=== PATIENT | male | born 1965 | race Native Hawaiian/Other Pacific Islander ===

== ENCOUNTER 2016-11-17 06:41 | Outpatient (CLI) | payer BC | END 2016-11-17 19:54 | disposition home or self-care (01) | LOC: CT 06:41 | DX: R10.9 Unspecified abdominal pain (principal) | CPT/HCPCS: 36415; 82565; 84520; Q9963 ==

== ENCOUNTER 2017-02-18 11:28 | Emergency (ER) | payer BC ==
[~2017-02-18] VITALS: Ht 167.6 cm; Wt 86.2 kg
[2017-02-18 11:42] VITALS: BP 140/77; TEMP 98.7
== END 2017-02-18 13:18 | disposition home or self-care (01) ==
LOC: ED 11:28
DX: S60.221A Contusion of right hand, initial encounter (principal); X58.XXXA Exposure to other specified factors, initial encounter
CPT/HCPCS: 96372; 99283; J1885

== ENCOUNTER 2019-04-30 11:47 | Day surgery (SDC) | payer OTHER | END 2019-04-30 15:10 | disposition home or self-care (01) | LOC: OR 11:47 | PROC: 0DB68ZZ Excision of Stomach, Via Natural or Artificial Opening Endoscopic (ICD-10-PCS; principal; 2019-04-30) | PROC: 0DB88ZZ Excision of Small Intestine, Via Natural or Artificial Opening Endoscopic (ICD-10-PCS; 2019-04-30) | DX: K29.50 Unspecified chronic gastritis without bleeding (principal); K21.0 Gastro-esophageal reflux disease with esophagitis; R10.12 Left upper quadrant pain; R10.13 Epigastric pain | CPT/HCPCS: J2001; J2250; J2704 ==

== ENCOUNTER 2019-05-08 08:22 | Outpatient (CLI) | payer OTHER ==
[2019-05-08 08:42] LABS: PLATELET COUNT 257 K/uL (142-355)
[2019-05-08 09:12] LABS: POTASSIUM 3.7 mmol/L (3.6-5.2)
== END 2019-05-08 20:14 | disposition home or self-care (01) ==
LOC: LABW 08:22
PROVIDERS: Internal Medicine Gastroenterology
DX: R94.5 Abnormal results of liver function studies (principal)
CPT/HCPCS: 36415; 80053; 80074; 82103; 82248; 82390; 82525; 82728; 83516; 83540; 83550; 85027; 85610; 86038

== ENCOUNTER 2019-05-27 08:59 | Outpatient (CLI) | payer OTHER | END 2019-05-27 23:59 | LOC: US 08:59 | DX: R94.5 Abnormal results of liver function studies (principal) ==